=== PATIENT | male | born 1980 | race Caucasian/White ===

== ENCOUNTER 2021-05-04 04:56 | Observation (INO) | payer MEDICAID ==
[~2021-05-04] VITALS: Ht 185.4 cm; Wt 119.0 kg
[2021-05-04] MEDS ORDERED: VANCOMYCIN PER PHARMACY MC ONE (05:30)
[2021-05-04] MEDS ORDERED: PIPERACILLIN/TAZO 3.375 GM in DEXTROSE 5% 50 ML IVPB ONE (05:30)
[2021-05-04] MEDS ORDERED: SODIUM CHLORIDE 0.9% 1,000ML IVBOLUS ONE (05:30)
[2021-05-04] MEDS ORDERED: PLEASE ENTER ALLERGIES MC SCH (05:30)
--- NOTE | 2021-05-04 06:34 | NUR ---
CT PENDING LAB/CREATINE.
[2021-05-04 06:42] LABS: MEAN CORPUSCULAR HEMOGLOBIN 28.9 pg (27.5-34.5); MEAN PLATELET VOLUME 8.1 fL (7.4-10.4); PLATELET COUNT 257 x10^3/uL (130-400); RED BLOOD COUNT 4.09 x10^6/uL (4.38-5.82); RED CELL DISTRIBUTION WIDTH 15.3 % (9.4-14.8)
[2021-05-04 06:56] LABS: ALBUMIN 3.1 g/dL (3.4-5.0); ANION GAP 6 mmol/L (5-15); CALCIUM 8.2 mg/dL (8.5-10.1); CHLORIDE 104 mmol/L (98-107)
[2021-05-04 06:59] LABS: ALANINE AMINOTRANSFERASE 14 U/L (12-78); ALKALINE PHOSPHATASE 64 U/L (45-117); BILIRUBIN,TOTAL 0.3 mg/dL (0.2-1.0); CREATININE 1.05 mg/dL (0.7-1.3); TOTAL PROTEIN 8.1 g/dL (6.4-8.2)
[2021-05-04] MEDS ORDERED: VANCOMYCIN 2,500 MG in SODIUM CHLORIDE 0.9% 500 ML IV ONE (07:00)
--- NOTE | 2021-05-04 07:08 | NUR ---
RECEIVED REPORT FROM PRANAY RODRIGUEZ RN. PT RESTING ON [place]UR[place]. NADN. JULES.
[2021-05-04] MEDS ORDERED: OMNIPAQUE 350 MG/ML, 100ML BOTTLE ONE (08:01)
--- NOTE | 2021-05-04 08:02 | NUR ---
PT RESTING ON GURNEY. NADN. JULES.
--- NOTE | 2021-05-04 09:04 | NUR ---
REPORT GIVEN TO LUIS, RECEIVING RN. ALL QUESTIONS ANSWERED. AWAITING PT TRANSPORT.
--- NOTE | 2021-05-04 09:21 | NUR ---
PT RESTING ON GURNEY. NADN. JULES.
[2021-05-04 09:25] LABS: LYMPH#(MANUAL) 1.67 x10^3/uL (1-3.4); LYMPHS% (MANUAL) 18 % (22-44); MONOS#(MANUAL) 0.65 x10^3/uL (0.3-2.7); MONOS% (MANUAL) 7 % (2-9); SEG#(MANUAL) 6.98 x10^3/uL (1.8-6.8); SEGS% (MANUAL) 75 % (42-75)
[2021-05-04 09:26] LABS: <PLATELET ESTIMATE> ADEQUATE; <PLT MORPHOLOGY> NORMAL PLT MORPH; <RBC MORPHOLOGY> NORMAL
[2021-05-04 09:54] VITALS: BP 117/73
[2021-05-04] MEDS ORDERED: POTASSIUM CHLORIDE 20 MEQ TAB.ER.PRT PO ONE (11:00)
[2021-05-04] MEDS ORDERED: ONDANSETRON 2MG/ML, 2ML IVPush PRN (11:00)
[2021-05-04] MEDS ORDERED: VANCOMYCIN PER PHARMACY MC PRN (11:00)
[2021-05-04] MEDS ORDERED: ONDANSETRON ODT 4 MG PO PRN (11:00)
[2021-05-04] MEDS ORDERED: KETOROLAC 30 MG/1 ML IV PRN (11:00)
[2021-05-04] MEDS: ENOXAPARIN 40 MG/0.4 ML SQ SCH (11:00)
[2021-05-04] MEDS ORDERED: ACETAMINOPHEN 325 MG TABLET PO PRN (11:00)
[2021-05-04] MEDS ORDERED: PHARMACOKINETIC MONITORING MC PRN (11:00)
[2021-05-04] MEDS ORDERED: IBUPROFEN 600 MG TABLET PO PRN (11:00)
[2021-05-04] MEDS ORDERED: LABETALOL 5MG/ML, 20ML IVPush PRN (11:00)
[2021-05-04] MEDS ORDERED: PHARMACOKINETIC CONSULTATION MC ONE (11:00)
[2021-05-04] MEDS: LACTATED RINGERS 1,000 ML IV SCH ×2 (11:40→16:42)
[2021-05-04] MEDS: AMPICILLIN/SULBACTAM 3 GM in SODIUM CHLORIDE 0.9% 100 ML IV SCH (11:40)
[2021-05-04] MEDS: OXYcodone IR 5MG TABLET PO PRN ×2 (16:48→23:50)
[2021-05-04] MEDS: LORazepam 1MG TABLET PO PRN ×2 (16:48→23:53)
[2021-05-04] MEDS ORDERED: VANCOMYCIN 1,900 MG in SODIUM CHLORIDE 0.9% 250 ML IV SCH (19:00)
[2021-05-04 19:47] VITALS: BP 134/64
[2021-05-05 00:02] VITALS: BP 130/78
[2021-05-05] MEDS ORDERED: HYDROmorphone 1 MG/ML, 1ML INJ IV PRN (04:30)
[2021-05-05] MEDS: AMPICILLIN/SULBACTAM 3 GM in SODIUM CHLORIDE 0.9% 100 ML IV SCH (05:27)
[2021-05-05 05:51] LABS: BASOPHILS % (AUTO) 1 % (0-1); EOSINOPHILS % (AUTO) 2 % (1-7); LYMPHOCYTES % (AUTO) 27 % (22-44); MEAN CORPUSCULAR HEMOGLOBIN 29.4 pg (27.5-34.5); MEAN CORPUSCULAR HGB CONC 33.7 g/dL (33.2-36.2); MEAN PLATELET VOLUME 8.2 fL (7.4-10.4); MONOCYTES % (AUTO) 15 % (2-9); NEUTROPHILS % (AUTO) 56 % (42-75); PLATELET COUNT 249 x10^3/uL (130-400); RED BLOOD COUNT 4.04 x10^6/uL (4.38-5.82); RED CELL DISTRIBUTION WIDTH 15.2 % (9.4-14.8)
[2021-05-05 06:11] LABS: ANION GAP 5 mmol/L (5-15); CALCIUM 8.8 mg/dL (8.5-10.1); CHLORIDE 108 mmol/L (98-107); CREATININE 0.77 mg/dL (0.7-1.3)
[2021-05-05 06:55] VITALS: BP 120/80
[2021-05-05] MEDS: LACTATED RINGERS 1,000 ML IV SCH (07:49)
[2021-05-05] MEDS: LORazepam 1MG TABLET PO PRN (10:29)
[2021-05-05] MEDS ORDERED: AMOX1TAB64 PO (10:45)
[2021-05-05] MEDS ORDERED: SULF1TAB24 PO (10:45)
[2021-05-05] MEDS: ENOXAPARIN 40 MG/0.4 ML SQ SCH (11:00)
[2021-05-05] MEDS ORDERED: VANCOMYCIN 2,000 MG in SODIUM CHLORIDE 0.9% 500 ML IV SCH (11:00)
== END 2021-05-05 12:37 | disposition home or self-care (01) ==
LOC: ED 06:52 → EDIP 08:25 → INTOOBSV 08:25 → 3N 10:03
PROVIDERS: ADMIT Family Medicine; ATTEND Family Medicine
DX: L03.113 Cellulitis of right upper limb (principal); F11.10 Opioid abuse, uncomplicated; E66.9 Obesity, unspecified; F17.200 Nicotine dependence, unspecified, uncomplicated; M72.9 Fibroblastic disorder, unspecified; Z68.34 Body mass index [BMI] 34.0-34.9, adult; Z63.8 Other specified problems related to primary support group; Z79.899 Other long term (current) drug therapy
CPT/HCPCS: 36415; 73201; 80048; 80053; 83605; 83735; 84145; 85025; 87040; 93971; 96361; 96365; 96366; 96367; 96375; 99285; G0378; J0295; J1170; J1885; J2543; J3370; J7030; J7040; J7050; J7120; Q9967